=== PATIENT | male | born 1950 | race Two or more races ===

== ENCOUNTER 2022-06-28 06:19 | Inpatient (IN) | payer MEDICARE, OTHER ==
[~2022-06-28] VITALS: Ht 165.1 cm; Wt 65.0 kg
[2022-06-28] VITALS (16 sets, daily range): BP systolic 103–150; BP diastolic 62–104
[~2022-06-28 06:19] MED LIST: CHOL20007 PO; GLIM4TAB42 PO; METF-371 PO; SITA100T7 PO; TAMS0.4C36 PO
[2022-06-28] MEDS ORDERED: PHENYLEPHRINE HCL 10 MG/ML VL IV ONE (06:30)
[2022-06-28] MEDS ORDERED: ceFAZolin 1GM/50ML 100 ML IV ONE (06:33)
[2022-06-28] MEDS ORDERED: TRANEXAMIC ACID 20 ML ONE (06:35)
[2022-06-28] MEDS ORDERED: BUPIVACAINE 0.25% INJ 50ML VIAL ONE (06:35)
[2022-06-28] MEDS ORDERED: VANCOMYCIN HCL 1000 MG VL ONE (06:36)
[2022-06-28] MEDS ORDERED: LIDOCAINE 2% JELLY 11ml (GLYDO) ONE (06:59)
[2022-06-28] MEDS ORDERED: TETRACAINE 1% INJ 2 ML VIAL IJ ONE (07:01)
[2022-06-28] MEDS ORDERED: fentaNYL CITRATE 100 MCG/2 ML VL ONE (07:46)
[2022-06-28] MEDS ORDERED: MORPHINE SULF PF 5 MG/10 ML VIAL ONE (07:46)
[2022-06-28] MEDS ORDERED: MIDAZOLAM HCL 2MG/2ML 2ml VIAL (1mg/ml) ONE (07:49)
[2022-06-28] MEDS ORDERED: MIDAZOLAM HCL 2MG/2ML 2ml VIAL (1mg/ml) IV PRN (09:00)
[2022-06-28] MEDS ORDERED: LABETALOL HCL 5 MG/ML 4ML SYRINGE IV PRN (09:00)
[2022-06-28] MEDS ORDERED: MORPHINE SULFATE 4 MG/ML SYR/VIAL IV PRN (09:00)
[2022-06-28] MEDS ORDERED: ePHEDrine SULFATE 50 MG/ML AMP IV PRN (09:00)
[2022-06-28] MEDS ORDERED: ONDANSETRON HCL 4 MG/2 ML VIAL IV PRN ×2 (09:00→10:45)
[2022-06-28] MEDS ORDERED: DexAMETHasone SOD PHOS 10MG/1ML VIAL INJ ONE (09:17)
[2022-06-28] MEDS ORDERED: PROPOFOL 10 MG/ML 20 ML IV ONE (09:17)
[2022-06-28] MEDS ORDERED: oxyCODONE HCL 5MG TAB PO PRN ×2 (11:30)
[2022-06-28] MEDS: SODIUM CHLORIDE 0.9% 1,000 ML IV SCH ×2 (11:30→20:39)
[2022-06-28] MEDS: HYDROmorphone HCL 2 MG/ML VL/or syr IV PRN ×2 (11:34→11:46)
[2022-06-28] MEDS ORDERED: diphenhdrAMINE HCL 50 MG/1 ML VL IV PRN (12:15)
[2022-06-28] MEDS ORDERED: NALOXONE HCL 0.4 MG/ML VIAL IV PRN (12:15)
[2022-06-28] MEDS ORDERED: HYDROmorphone HCL 2 MG/ML VL/or syr IV PRN (12:15)
[2022-06-28] MEDS ORDERED: DexAMETHasone SOD PHOS 10MG/1ML VIAL INJ IV PRN (12:15)
[2022-06-28] MEDS ORDERED: NALBUPHINE HCL 10 MG/1ml INJECTION SUBCUT ONE (12:15)
[2022-06-28] MEDS ORDERED: metFORMIN HYDROCHLORIDE 850 MG TAB PO SCH (14:00)
[2022-06-28] MEDS: ACETAMINOPHEN 325 MG TAB PO SCH ×2 (14:07→18:47)
[2022-06-28] MEDS: KETOROLAC TROMETH 30 MG/ML 1ML VIAL IV SCH ×2 (14:17→18:46)
[2022-06-28] MEDS: ceFAZolin 2 GM/D5W100ml 100 ML IV SCH ×2 (15:11→21:31)
[2022-06-28] MEDS: TAMSULOSIN HYDROCHLORIDE 0.4 MG CAP PO SCH (18:46)
[2022-06-28] MEDS: ONDANSETRON HCL 4 MG/2 ML VIAL IV PRN (20:35)
[2022-06-28] MEDS: PREGABALIN 25 MG CAP PO SCH (21:30)
[2022-06-29] VITALS (12 sets, daily range): BP systolic 97–152; BP diastolic 63–101
[2022-06-29] MEDS: SODIUM CHLORIDE 0.9% 1,000 ML IV SCH ×2 (03:13→11:19)
[2022-06-29 05:40] LABS: Basophils # (auto) 0.1 10 ^3/uL (0-0.2); Basophils % (auto) 0.4 % (0.0-2.0); Eosinophils # (auto) 0 10 ^3/uL (0-0.8); Hemoglobin 10.6 g/dL (13.5-17.5); Lymphocytes # (auto) 1.4 10 ^3/uL (0.4-5.4); Lymphocytes % (auto) 10.4 % (10.0-50.0); Mean Corpuscular Hemoglobin 27.4 pg (28.0-32.0); Mean Corpuscular Hgb Conc. 34.2 g/dL (32.0-36.0); Mean Corpuscular Volume 80.1 fL (80.0-100.0); Monocytes # (auto) 1.4 10 ^3/uL (0-1.3); Monocytes % (auto) 9.8 % (0.0-12.0); Neutrophils % (auto) 79.4 % (37.0-80.0); Red Blood Cells 3.87 10^6/uL (4.5-5.90); Red Cell Distribution Width 13.8 % (11.8-14.3); White Blood Cell 13.9 10^3/uL (4.4-10.8)
[2022-06-29 05:56] LABS: BUN/Creatinine Ratio 34.1 (10.0-20.0); Calcium 8.5 mg/dL (8.5-10.1); Potassium 4.3 mmol/L (3.5-5.1)
[2022-06-29] MEDS: ONDANSETRON HCL 4 MG/2 ML VIAL IV PRN (06:47)
[2022-06-29] MEDS: KETOROLAC TROMETH 30 MG/ML 1ML VIAL IV SCH ×5 (06:50→17:43)
[2022-06-29] MEDS: ACETAMINOPHEN 325 MG TAB PO SCH ×4 (07:00→17:43)
[2022-06-29] MEDS: PREGABALIN 25 MG CAP PO SCH (09:41)
[2022-06-29] MEDS ORDERED: PATIENTS OWN MEDICATION (Sitagliptin Phosphate (Januvia) 1 TAB) PO SCH (10:00)
[2022-06-29] MEDS ORDERED: APIXABAN 2.5 MG TAB PO SCH (10:00)
[2022-06-29] MEDS: TAMSULOSIN HYDROCHLORIDE 0.4 MG CAP PO SCH (17:45)
== END 2022-06-29 18:45 | disposition home or self-care (01) | DRG 470 ==
LOC: SUR 06:19 → OVERFLOW 10:48 → TELE-CENTR 12:07
PROVIDERS: ADMIT Orthopaedic Surgery; ATTEND Orthopaedic Surgery
PROC: 0SR90JZ Replacement of Right Hip Joint with Synthetic Substitute, Open Approach (ICD-10-PCS; principal; 2022-06-28 08:30)
DX: M16.11 Unilateral primary osteoarthritis, right hip (principal); N40.0 Benign prostatic hyperplasia without lower urinary tract symptoms; E11.9 Type 2 diabetes mellitus without complications; Z20.822 Contact with and (suspected) exposure to COVID-19
CPT/HCPCS: 36415; 72170; 80048; 82962; 85025; 86850; 86900; 86901; 97110; 97116; 97163; 97530; G0378; J0690; J1100; J1885; J2250; J2405; J2704; J3490

== ENCOUNTER 2022-07-23 18:35 | Inpatient (IN) | payer MEDICARE, OTHER ==
[~2022-07-23] VITALS: Ht 165.1 cm; Wt 62.0 kg
[2022-07-23] MEDS ORDERED: ONDANSETRON HCL 4 MG/2 ML VIAL IV PRN (22:30)
[2022-07-23] MEDS ORDERED: ACETAMINOPHEN 325 MG TAB PO PRN (22:30)
[2022-07-23] MEDS ORDERED: DEXTROSE (50%) 50ML SYRG IV PRN (22:30)
[2022-07-23] MEDS ORDERED: VANCOMYCIN PER PHARMACY 0 MG IV SCH (22:30)
[2022-07-23] MEDS ORDERED: PIPERACILLIN-TAZOB 3.375GM 100 ML IV ONE (22:30)
[2022-07-23] MEDS ORDERED: HYDROcodone-ACET 5/325MG TAB PO PRN (22:30)
[2022-07-23] MEDS ORDERED: VANCOMYCIN 1GM/250ML 250 ML IV ONE (23:00)
[2022-07-23] MEDS: SODIUM CHLORIDE 0.9% 1,000 ML IV SCH (23:14)
[2022-07-23 23:15] LABS: Basophils # (auto) 0.1 10 ^3/uL (0-0.2); Basophils % (auto) 0.7 % (0.0-2.0); Eosinophils # (auto) 0.3 10 ^3/uL (0-0.8); Hemoglobin 9.7 g/dL (13.5-17.5); Lymphocytes # (auto) 1.6 10 ^3/uL (0.4-5.4); Monocytes # (auto) 0.7 10 ^3/uL (0-1.3); White Blood Cell 8.6 10^3/uL (4.4-10.8)
[2022-07-23 23:17] LABS: Eosinophils % (auto) 3.5 % (0.0-7.0); Hematocrit 29.9 % (41.0-53.0); Lymphocytes % (auto) 18.3 % (10.0-50.0); Mean Corpuscular Hemoglobin 25.8 pg (28.0-32.0); Mean Corpuscular Hgb Conc. 32.3 g/dL (32.0-36.0); Mean Corpuscular Volume 79.9 fL (80.0-100.0); Monocytes % (auto) 8.1 % (0.0-12.0); Neutrophils % (auto) 69.4 % (37.0-80.0); Red Blood Cells 3.74 10^6/uL (4.5-5.90); Red Cell Distribution Width 14.9 % (11.8-14.3)
[2022-07-23 23:27] LABS: Albumin 2.4 g/dL (3.4-5.0); BUN/Creatinine Ratio 16.9 (10.0-20.0); Calcium 8.1 mg/dL (8.5-10.1); Potassium 3.6 mmol/L (3.5-5.1)
[2022-07-23 23:30] LABS: Bilirubin, Total 0.3 mg/dL (0.2-1.0); Total Protein 6.9 g/dL (6.4-8.2)
[2022-07-23 23:33] LABS: INR 1.18 (0.9-1.15)
[2022-07-23 23:54] VITALS: BP 119/79
[2022-07-24 05:00] VITALS: BP 120/80
[2022-07-24] MEDS ORDERED: PIPERACILLIN-TAZOB 3.375GM 100 ML IV SCH (06:00)
[2022-07-24] MEDS: ACCU-CHEK COMFORT CURVE STRIP VI SCH ×4 (06:07→21:43)
[2022-07-24] MEDS: InsuLIN REG 1unit/0.01ml Soln (100units/ml) SC SCH ×4 (06:09→21:47)
[2022-07-24 06:46] LABS: Lymphocytes # (auto) 1.6 10 ^3/uL (0.4-5.4); Mean Corpuscular Hemoglobin 26.3 pg (28.0-32.0); White Blood Cell 9.3 10^3/uL (4.4-10.8)
[2022-07-24 06:49] LABS: Basophils # (auto) 0.1 10 ^3/uL (0-0.2); Basophils % (auto) 0.7 % (0.0-2.0); Eosinophils # (auto) 0.3 10 ^3/uL (0-0.8); Eosinophils % (auto) 2.8 % (0.0-7.0); Hematocrit 30.3 % (41.0-53.0); Lymphocytes % (auto) 17.4 % (10.0-50.0); Mean Corpuscular Volume 79.6 fL (80.0-100.0); Monocytes # (auto) 0.7 10 ^3/uL (0-1.3); Monocytes % (auto) 7.8 % (0.0-12.0); Neutrophils # (auto) 6.6 10 ^3/uL (1.6-8.6); Neutrophils % (auto) 71.3 % (37.0-80.0); Nucleated Red Blood Cells % 0.1 %; Red Cell Distribution Width 14.9 % (11.8-14.3)
[2022-07-24 06:53] LABS: Albumin 2.3 g/dL (3.4-5.0); BUN/Creatinine Ratio 17.4 (10.0-20.0); Calcium 8.2 mg/dL (8.5-10.1); Potassium 3.7 mmol/L (3.5-5.1)
[2022-07-24 06:56] LABS: Bilirubin, Total 0.4 mg/dL (0.2-1.0); Total Protein 6.8 g/dL (6.4-8.2)
[2022-07-24 09:23] VITALS: BP 101/76
[2022-07-24] MEDS: HEPARIN SODIUM (PORCINE) 5000 UNITS/ML 1ML VIAL SC SCH ×2 (10:29→21:12)
[2022-07-24] MEDS: SODIUM CHLORIDE 0.9% 1,000 ML IV SCH (12:02)
[2022-07-24 13:00] VITALS: BP 124/72
[2022-07-24 17:00] VITALS: BP 117/85
[2022-07-24] MEDS ORDERED: LACTULOSE 20Gm/30ML SOLN PO ONE (17:15)
[2022-07-24] MEDS: TAMSULOSIN HYDROCHLORIDE 0.4 MG CAP PO SCH (18:11)
[2022-07-24] MEDS: CEFEPIME 2 GM in SODIUM CHL 0.9% 50 ML IV SCH (21:11)
[2022-07-24] MEDS: DOCUSATE SOD 100 MG CAP PO SCH (21:11)
[2022-07-24 22:00] VITALS: BP 99/66
[2022-07-24 22:04] LABS: Urine Bacteria NONE SEEN /hpf (None Seen); Urine Blood Negative /uL (Negative); Urine WBC 2 /hpf (0 - 3)
[2022-07-25] MEDS: SODIUM CHLORIDE 0.9% 1,000 ML IV SCH ×2 (01:10→17:17)
[2022-07-25 05:00] VITALS: BP 107/73
[2022-07-25] MEDS: VANCOMYCIN 1GM/250ML 250 ML IV SCH ×2 (05:45→23:29)
[2022-07-25] MEDS ORDERED: VANCOMYCIN 1GM/250ML 250 ML IV SCH (06:00)
[2022-07-25] MEDS: ACCU-CHEK COMFORT CURVE STRIP VI SCH ×4 (06:04→22:40)
[2022-07-25] MEDS: InsuLIN REG 1unit/0.01ml Soln (100units/ml) SC SCH ×4 (06:05→22:41)
[2022-07-25 07:00] LABS: Basophils # (auto) 0.1 10 ^3/uL (0-0.2); Basophils % (auto) 0.5 % (0.0-2.0); Eosinophils # (auto) 0.1 10 ^3/uL (0-0.8); Hematocrit 29.5 % (41.0-53.0); Hemoglobin 9.5 g/dL (13.5-17.5); Lymphocytes # (auto) 2.2 10 ^3/uL (0.4-5.4); Lymphocytes % (auto) 20.4 % (10.0-50.0); Mean Corpuscular Hemoglobin 25.5 pg (28.0-32.0); Mean Corpuscular Hgb Conc. 32.4 g/dL (32.0-36.0); Mean Corpuscular Volume 78.7 fL (80.0-100.0); Monocytes # (auto) 0.9 10 ^3/uL (0-1.3); Neutrophils # (auto) 7.6 10 ^3/uL (1.6-8.6); Neutrophils % (auto) 70.1 % (37.0-80.0); Red Blood Cells 3.75 10^6/uL (4.5-5.90); Red Cell Distribution Width 14.5 % (11.8-14.3); White Blood Cell 10.9 10^3/uL (4.4-10.8)
[2022-07-25 07:04] LABS: Potassium 3.2 mmol/L (3.5-5.1)
[2022-07-25 07:15] LABS: BUN/Creatinine Ratio 19.7 (10.0-20.0); CRP High Sensitivity 3.77 mg/dL (< 0.3); Calcium 8.4 mg/dL (8.5-10.1)
[2022-07-25 08:30] VITALS: BP 111/79
[2022-07-25] MEDS: DOCUSATE SOD 100 MG CAP PO SCH ×2 (09:50→22:10)
[2022-07-25] MEDS: CEFEPIME 2 GM in SODIUM CHL 0.9% 50 ML IV SCH ×2 (09:51→22:10)
[2022-07-25] MEDS: HEPARIN SODIUM (PORCINE) 5000 UNITS/ML 1ML VIAL SC SCH ×2 (09:56→22:11)
[2022-07-25] MEDS ORDERED: POTASSIUM CHL 20 Meq TABLET PO ONE (10:30)
[2022-07-25 12:36] VITALS: BP 119/75
[2022-07-25] MEDS ORDERED: LIDOCAINE 1% (LOCAL ANESTH.) PF 5ml SDV ID ONE (14:30)
[2022-07-25 16:58] VITALS: BP 120/70
[2022-07-25] MEDS: TAMSULOSIN HYDROCHLORIDE 0.4 MG CAP PO SCH (18:39)
[2022-07-25] MEDS ORDERED: FLEET ENEMA(ADULT) 135 ML PR ONE (21:30)
[2022-07-25 22:00] VITALS: BP 124/74
[2022-07-25] MEDS: SODIUM CHLOR 0.9% PF (SALINE LOCK) 10ML VIAL/SYR IV SCH (22:10)
[2022-07-26] MEDS: SODIUM CHLORIDE 0.9% 1,000 ML IV SCH ×4 (03:50→19:30)
[2022-07-26 05:00] VITALS: BP 104/64
[2022-07-26] MEDS: InsuLIN REG 1unit/0.01ml Soln (100units/ml) SC SCH ×4 (05:45→21:46)
[2022-07-26] MEDS: ACCU-CHEK COMFORT CURVE STRIP VI SCH ×4 (05:45→21:56)
[2022-07-26 06:17] LABS: Anion Gap 8 (5-15); Calcium 8.3 mg/dL (8.5-10.1); Carbon Dioxide 21 mmol/L (21-32); Chloride 104 mmol/L (98-107); Glucose 122 mg/dL (74-106); Potassium 3.4 mmol/L (3.5-5.1); Sodium 133 mmol/L (136-145)
[2022-07-26 06:21] LABS: BUN/Creatinine Ratio 19.1 (10.0-20.0); Blood Urea Nitrogen 13 mg/dL (7-18); GFR African American 149 mL/min; GFR Non-African American 123 mL/min
[2022-07-26] MEDS ORDERED: TRANEXAMIC ACID 20 ML ONE (06:54)
[2022-07-26] MEDS ORDERED: BUPIVACAINE W/ EPINEPH 0.25% INJ 50ML MDV ONE (06:54)
[2022-07-26] MEDS ORDERED: EPINEPHrine HCL 1 MG/1 ML AMP ONE ×2 (06:55→09:15)
[2022-07-26] MEDS ORDERED: MORPHINE SULF PF 5 MG/10 ML VIAL ONE (07:01)
[2022-07-26 08:30] VITALS: BP 111/59
[2022-07-26] MEDS: HEPARIN SODIUM (PORCINE) 5000 UNITS/ML 1ML VIAL SC SCH (08:44)
[2022-07-26] MEDS: DOCUSATE SOD 100 MG CAP PO SCH ×2 (08:44→21:47)
[2022-07-26] MEDS ORDERED: LIDOCAINE 2% (LOCAL ANESTH.) PF 5ml SDV ONE ×2 (09:11→12:37)
[2022-07-26] MEDS ORDERED: DexAMETHasone SOD PHOS 10MG/1ML VIAL INJ ONE (09:11)
[2022-07-26] MEDS ORDERED: KETOROLAC TROMETH 30 MG/ML 1ML VIAL ONE (09:11)
[2022-07-26] MEDS ORDERED: GLYCOPYRROLATE 0.2 MG/ML 1ML VIAL ONE (09:11)
[2022-07-26] MEDS ORDERED: PROPOFOL 10 MG/ML 20 ML IV ONE ×3 (09:11→12:25)
[2022-07-26] MEDS ORDERED: ONDANSETRON HCL 4 MG/2 ML VIAL ONE (09:11)
[2022-07-26] MEDS ORDERED: DexAMETHasone SOD PHOS 4 MG/1ML SDV INJ ONE (09:16)
[2022-07-26] MEDS ORDERED: BUPIVACAINE 0.25% INJ 50ML VIAL ONE (09:16)
[2022-07-26] MEDS: CEFEPIME 2 GM in SODIUM CHL 0.9% 50 ML IV SCH ×2 (10:00→21:46)
[2022-07-26] MEDS: SODIUM CHLOR 0.9% PF (SALINE LOCK) 10ML VIAL/SYR IV SCH ×2 (10:00→21:47)
[2022-07-26] MEDS ORDERED: TOBRAMYCIN SULFATE 40 MG/ML 2ML VIAL XX ONE ×2 (10:00)
[2022-07-26] MEDS ORDERED: ceFAZolin 1GM/50ML 100 ML IV ONE (10:08)
[2022-07-26] MEDS ORDERED: VANCOMYCIN HCL 1000 MG VL ONE (10:16)
[2022-07-26] MEDS ORDERED: SODIUM CHLORIDE LOCK 10 ML ONE ×3 (10:28→10:40)
[2022-07-26] MEDS ORDERED: PHENYLEPHRINE HCL 10 MG/ML VL ONE (10:39)
[2022-07-26] MEDS ORDERED: BUPIVACAINE/DEXTROSE MPF 0.75% 2 ML AMP IT ONE (10:39)
[2022-07-26] MEDS ORDERED: POTASSIUM CHL 20 Meq TABLET PO ONE (11:15)
[2022-07-26] MEDS ORDERED: oxyCODONE HCL 5MG TAB PO PRN ×2 (11:30)
[2022-07-26] MEDS ORDERED: ONDANSETRON HCL 4 MG/2 ML VIAL IV PRN (13:00)
[2022-07-26 16:50] VITALS: BP 111/64
[2022-07-26] MEDS: VANCOMYCIN 1GM/250ML 250 ML IV SCH (17:50)
[2022-07-26] MEDS: TAMSULOSIN HYDROCHLORIDE 0.4 MG CAP PO SCH (17:50)
[2022-07-26] MEDS: PREGABALIN 25 MG CAP PO SCH (21:46)
[2022-07-26] MEDS: ACETAMINOPHEN 325 MG TAB PO SCH (21:48)
[2022-07-26 22:00] VITALS: BP_SYST 53
[2022-07-26 23:00] VITALS: BP 105/50
[2022-07-27] MEDS: SODIUM CHLORIDE 0.9% 1,000 ML IV SCH ×5 (03:30→19:50)
[2022-07-27 05:00] VITALS: BP 123/67
[2022-07-27] MEDS: CEFEPIME 2 GM in SODIUM CHL 0.9% 50 ML IV SCH ×3 (05:46→21:48)
[2022-07-27 05:50] LABS: Basophils # (auto) 0 10 ^3/uL (0-0.2); Basophils % (auto) 0.2 % (0.0-2.0); Eosinophils # (auto) 0.1 10 ^3/uL (0-0.8); Eosinophils % (auto) 0.4 % (0.0-7.0); Hemoglobin 7.1 g/dL (13.5-17.5); Lymphocytes # (auto) 2.3 10 ^3/uL (0.4-5.4); Lymphocytes % (auto) 17.2 % (10.0-50.0); Mean Corpuscular Hemoglobin 26.2 pg (28.0-32.0); Mean Corpuscular Hgb Conc. 33.7 g/dL (32.0-36.0); Mean Corpuscular Volume 77.7 fL (80.0-100.0); Monocytes # (auto) 1.4 10 ^3/uL (0-1.3); Monocytes % (auto) 10.3 % (0.0-12.0); Neutrophils # (auto) 9.4 10 ^3/uL (1.6-8.6); Neutrophils % (auto) 71.9 % (37.0-80.0); Red Cell Distribution Width 14.8 % (11.8-14.3); White Blood Cell 13.1 10^3/uL (4.4-10.8)
[2022-07-27] MEDS: ACETAMINOPHEN 325 MG TAB PO SCH ×4 (05:50→17:35)
[2022-07-27] MEDS: ACCU-CHEK COMFORT CURVE STRIP VI SCH ×4 (05:51→21:46)
[2022-07-27] MEDS: InsuLIN REG 1unit/0.01ml Soln (100units/ml) SC SCH ×4 (06:00→21:46)
[2022-07-27 06:02] LABS: Calcium 8.6 mg/dL (8.5-10.1); Potassium 3.9 mmol/L (3.5-5.1)
[2022-07-27 08:43] VITALS: BP 101/63
[2022-07-27] MEDS: DOCUSATE SOD 100 MG CAP PO SCH ×2 (10:05→21:48)
[2022-07-27] MEDS: APIXABAN 2.5 MG TAB PO SCH ×2 (10:05→21:48)
[2022-07-27] MEDS: PREGABALIN 25 MG CAP PO SCH ×2 (10:06→21:48)
[2022-07-27] MEDS: SODIUM CHLOR 0.9% PF (SALINE LOCK) 10ML VIAL/SYR IV SCH ×2 (10:06→21:48)
[2022-07-27] MEDS: VANCOMYCIN 1GM/250ML 250 ML IV SCH (11:57)
[2022-07-27 12:50] VITALS: BP 103/60
[2022-07-27 16:04] VITALS: BP 98/64
[2022-07-27] MEDS: TAMSULOSIN HYDROCHLORIDE 0.4 MG CAP PO SCH (17:35)
[2022-07-27 20:00] VITALS: BP 98/59
[2022-07-27 22:00] VITALS: BP 98/59
[2022-07-28] MEDS: ACETAMINOPHEN 325 MG TAB PO SCH ×3 (00:20→12:20)
[2022-07-28 04:34] VITALS: BP 110/70
[2022-07-28] MEDS: CEFEPIME 2 GM in SODIUM CHL 0.9% 50 ML IV SCH ×2 (06:08→14:06)
[2022-07-28] MEDS: ACCU-CHEK COMFORT CURVE STRIP VI SCH ×3 (06:09→17:00)
[2022-07-28] MEDS: SODIUM CHLORIDE 0.9% 1,000 ML IV SCH ×3 (06:10→11:30)
[2022-07-28] MEDS: InsuLIN REG 1unit/0.01ml Soln (100units/ml) SC SCH ×3 (06:12→17:00)
[2022-07-28 06:15] LABS: Basophils # (auto) 0 10 ^3/uL (0-0.2); Basophils % (auto) 0.4 % (0.0-2.0); Eosinophils # (auto) 0.3 10 ^3/uL (0-0.8); Eosinophils % (auto) 2.5 % (0.0-7.0); Hematocrit 21.3 % (41.0-53.0); Hemoglobin 7.2 g/dL (13.5-17.5); Lymphocytes # (auto) 1.9 10 ^3/uL (0.4-5.4); Mean Corpuscular Hemoglobin 25.9 pg (28.0-32.0); Mean Corpuscular Hgb Conc. 33.5 g/dL (32.0-36.0); Mean Corpuscular Volume 77.2 fL (80.0-100.0); Monocytes # (auto) 0.9 10 ^3/uL (0-1.3); Monocytes % (auto) 8.8 % (0.0-12.0); Neutrophils # (auto) 7.3 10 ^3/uL (1.6-8.6); Neutrophils % (auto) 70.3 % (37.0-80.0); Nucleated Red Blood Cells % 0.1 %; Red Blood Cells 2.76 10^6/uL (4.5-5.90); Red Cell Distribution Width 14.7 % (11.8-14.3); White Blood Cell 10.4 10^3/uL (4.4-10.8)
[2022-07-28 09:00] VITALS: BP 126/73
[2022-07-28] MEDS: PREGABALIN 25 MG CAP PO SCH (10:05)
[2022-07-28] MEDS: DOCUSATE SOD 100 MG CAP PO SCH (10:05)
[2022-07-28] MEDS: APIXABAN 2.5 MG TAB PO SCH (10:05)
[2022-07-28] MEDS: SODIUM CHLOR 0.9% PF (SALINE LOCK) 10ML VIAL/SYR IV SCH (10:05)
[2022-07-28 13:00] VITALS: BP 107/70
[2022-07-28 14:32] VITALS: BP 107/70
[2022-07-28 16:52] VITALS: BP 112/73
== END 2022-07-28 17:10 | DRG 464 ==
LOC: TELE-WESTW 22:10 → WEST WING 22:46
PROVIDERS: ADMIT Nurse Practitioner Family; ATTEND Internal Medicine
PROC: 02HV33Z Insertion of Infusion Device into Superior Vena Cava, Percutaneous Approach (ICD-10-PCS; 2022-07-25)
PROC: 0SP909Z Removal of Liner from Right Hip Joint, Open Approach (ICD-10-PCS; 2022-07-26)
PROC: 0SUA09Z Supplement Right Hip Joint, Acetabular Surface with Liner, Open Approach (ICD-10-PCS; 2022-07-26)
PROC: 3E01329 Introduction of Other Anti-infective into Subcutaneous Tissue, Percutaneous Approach (ICD-10-PCS; 2022-07-26)
PROC: 0JBL0ZZ Excision of Right Upper Leg Subcutaneous Tissue and Fascia, Open Approach (ICD-10-PCS; principal; 2022-07-26 10:25)
DX: T84.51XA Infection and inflammatory reaction due to internal right hip prosthesis, initial encounter (principal); M00.9 Pyogenic arthritis, unspecified; L08.9 Local infection of the skin and subcutaneous tissue, unspecified; N40.0 Benign prostatic hyperplasia without lower urinary tract symptoms; E11.9 Type 2 diabetes mellitus without complications; Z20.822 Contact with and (suspected) exposure to COVID-19; Y83.9 Surgical procedure, unspecified as the cause of abnormal reaction of the patient, or of later complication, without mention of misadventure at the time of the procedure; B96.5 Pseudomonas (aeruginosa) (mallei) (pseudomallei) as the cause of diseases classified elsewhere; D64.9 Anemia, unspecified; D72.829 Elevated white blood cell count, unspecified; Z83.3 Family history of diabetes mellitus; Y92.89 Other specified places as the place of occurrence of the external cause
CPT/HCPCS: 36415; 36569; 71045; 72170; 73502; 80048; 80053; 81001; 82962; 83036; 85025; 85610; 86141; 87040; 87075; 87077; 87081; 87186; 87205; 87426; 97110; 97116; 97163; 97530; G0378; J0171; J0690; J1100; J1815; J1885; J2001; J2405; J2543; J2704; J3490

== ENCOUNTER 2022-08-10 13:46 | Emergency (ER) | payer MEDICARE, OTHER ==
[~2022-08-10] VITALS: Ht 157.5 cm; Wt 72.7 kg
[2022-08-10 14:47] LABS: Basophils # (auto) 0.1 10 ^3/uL (0-0.2); Basophils % (auto) 0.7 % (0.0-2.0); Eosinophils # (auto) 0.4 10 ^3/uL (0-0.8); Lymphocytes # (auto) 1.7 10 ^3/uL (0.4-5.4); Mean Corpuscular Volume 76.3 fL (80.0-100.0); Neutrophils # (auto) 4.5 10 ^3/uL (1.6-8.6); Red Cell Distribution Width 15.8 % (11.8-14.3); White Blood Cell 7.4 10^3/uL (4.4-10.8)
[2022-08-10 14:49] LABS: Hematocrit 22.8 % (41.0-53.0); Hemoglobin 7.2 g/dL (13.5-17.5); Lymphocytes % (auto) 22.4 % (10.0-50.0); Mean Corpuscular Hemoglobin 24.2 pg (28.0-32.0); Mean Corpuscular Hgb Conc. 31.7 g/dL (32.0-36.0); Monocytes # (auto) 0.8 10 ^3/uL (0-1.3); Monocytes % (auto) 10.1 % (0.0-12.0); Neutrophils % (auto) 60.8 % (37.0-80.0); Nucleated Red Blood Cells % 0.1 %; Red Blood Cells 2.99 10^6/uL (4.5-5.90)
[2022-08-10 15:14] LABS: Albumin 2.3 g/dL (3.4-5.0); Calcium 8.1 mg/dL (8.5-10.1); Potassium 3.7 mmol/L (3.5-5.1)
[2022-08-10 15:17] LABS: Bilirubin, Total 0.2 mg/dL (0.2-1.0); Total Protein 6.6 g/dL (6.4-8.2)
[2022-08-10 19:01] VITALS: BP 121/74
== END 2022-08-10 19:01 | disposition home or self-care (01) ==
LOC: ER 13:46 → EDBD 13:46 → EDUNIT# 13:46 → ER 19:01
DX: D64.9 Anemia, unspecified (principal); Z96.649 Presence of unspecified artificial hip joint
CPT/HCPCS: 36415; 80053; 85025; 86850; 86900; 86901